=== PATIENT | male | born 1980 | race Caucasian/White ===

== ENCOUNTER 2024-11-09 10:30 | Day surgery (SDC) | payer OTHER ==
[2024-11-02 16:37] VITALS: BP 179/85
[~2024-11-09] VITALS: Ht 180.3 cm; Wt 70.5 kg
[~2024-11-09 10:30] MED LIST: ASPIRIN325 MG PO; IBLOOD GLUCOSE TEST STRIP 1 EA TEST VI PRN; LACTATED RINGER'S 1,000 ML IV SCH; LIDOCAINE HCL 1% 5 ML SDV INJ ONE; MIDAZOLAM HCL 5 MG/5 ML VIAL IV PRN; fentaNYL citrate 100 MCG/2 ML VIAL IV PRN
[2024-11-09 10:49] VITALS: BP 134/78
[2024-11-09 11:08] LABS: BASOPHILS 2.8 % (0.2-1.2); BASOPHILS, ABSOLUTE 0.27 K/uL (0.01-0.08); EOSINOPHILS 1.5 % (0.8-7.0); EOSINOPHILS, ABSOLUTE 0.15 K/uL (0.04-0.54); HEMATOCRIT 69.6 % (40.1-51.0); LYMPHOCYTES 12.7 % (21.8-53.1); LYMPHOCYTES, ABSOLUTE 1.23 K/uL (1.32-3.57); MCH 27.6 PG (25.7-32.2); MCHC 32.8 g/dL (32.3-36.5); MCV 84.2 fL (79.0-92.2); MONOCYTES, ABSOLUTE 0.39 K/uL (0.30-0.82); NEUTROPHILS 78.8 % (34.0-67.9); NEUTROPHILS, ABSOLUTE 7.62 K/uL (1.78-5.38); PLATELET COUNT 717 K/uL (163-337); RBC > 8.06 M/uL (4.63-6.08)
[2024-11-09 11:18] LABS: HEMOGLOBIN 22.8 g/dL (13.7-17.5)
[2024-11-09 11:26] LABS: ALBUMIN 4.2 g/dL (3.4-5.0); ALBUMIN/GLOBULIN RATIO 1.2 (1.1-2.4); ANION GAP 10.9 (7-21); BILIRUBIN, TOTAL 1.1 mg/dL (0.2-1.0); BUN/CREATININE RATIO 20.4 (6.0-28.6); CALCIUM 9.4 mg/dL (8.5-10.1); CREATININE, SERUM 1.47 mg/dL (0.70-1.30); POTASSIUM 3.9 mmol/L (3.5-5.1); PROTEIN, TOTAL 7.7 g/dL (6.4-8.2)
[2024-11-09] MEDS ORDERED: propofoL 200 MG/20 ML VIAL ONE ×2 (11:39→11:58)
[2024-11-09] MEDS ORDERED: LIDOCAINE HCL 2% 5 ML SDV ONE (11:57)
--- NOTE | 2024-11-09 12:19 | NUR ---
11/09/24 1219 Lynne Merino 1212-PATIENT ARRIVED TO PACU ON 2L NC RR EVEN. PATIENT NONAROUSABLE LAYING PRONE. SR HR 60'S. IVF INFUSING. BANDAIDS TO BILATERAL LOWER BACK CDI.
[2024-11-09 12:49] VITALS: BP 128/88
[2024-11-11 03:59] LABS: BETA-2-MICROGLOBULIN,SER/PLAS 2.7 mg/L (0.8-2.4)
--- NOTE | 2024-11-20 13:23 | PATH ---
[facility] [address] [place], [place] [address] Signed SPECIMEN(S): A BONE MARROW - CORE SPECIMEN(S): B BONE MARROW - ASPIRATION SPECIMEN(S): C FLOW CYTOMETRY, BM EDTA CLINICAL HISTORY: Polycythemia vera. 43 years old male with MPN. Please do not recollect to send FISH for BCR/ABL. Please do not to send [id number] and relax JAKZ exon 12, MPL,CALR DIAGNOSIS SUMMARY: Peripheral blood - Polycythemia, RBC count 8.06 M/ul. - Thrombocytosis, platelet count 717 K/ul. - No circulating blasts are identified. Bone marrow biopsy and aspiration: - Hypercellular marrow, 90%, with 1.5% myeloblasts. - Trilineage hematopoiesis with erythrocytosis. - MF-1 reticulin fibrosis. - Findings are supportive of myeloproliferative neoplasm, favor polycythemia vera. Confirmatory molecular testing is pending. - See Diagnostic Comment. DIAGNOSTIC COMMENT: The findings are supportive of a myeloproliferative neoplasm, favor polycythemia vera. A FISH probe for BCR/ABL1 is negative. Confirmatory pending studies at the time of this report include chromosome analysis, and molecular mutation testing for JAK2 V617 with reflex to JAK2 exon 12-13, CALR, and MPL. The results will be reported via addendum. HISTORICAL SUMMARY: 43 yo male with no prior hematology case history in the [employer] database. He presents for evaluation of an unexplained erythrocytosis and thrombocytosis. PERIPHERAL BLOOD: HEMOGRAM (11/09/2024): WBC 9.68 K/ul, RBC 8.06 M/ul, HGB 22.8 g/dl, HCT 69.6%, MCV 84.2 fl, MCH 27.6 pg, MCHC 32.8 g/dl, RDW 19.7%, PLT 717 K/ul. AUTOMATED DIFFERENTIAL COUNT: Neutrophils 78.8%, lymphocytes 12.7%, monocytes 4.0%, eosinophils 1.5%, basophils 2.8%. The red blood cells are markedly increased in numbers. The RBC's are normocytic and normochromic with moderate aniso-poikilocytosis. The neutrophils are unremarkable. Lymphocytes are composed of PATIENT NAME: VENUS CALABRESE [facility] DATE OF : 76 REPORT #: [id number] PHYSICIAN: [facility] PCP: NO PRIMARY CARE PHYSICIAN REPORT IS CONFIDENTIAL AND NOT TO BE RELEASED WITHOUT AUTHORIZATION [facility] [address] [place], [place] [address] Signed small mature appearing forms. Platelets are increased in number. Platelet clumping is identified. No blasts are identified. BONE MARROW: ASPIRATE SMEARS/TOUCH IMPRINT: The aspirate smears are adequate for evaluation. Erythroid precursors are increased in numbers with essentially normal morphology. The myeloid precursors show full maturation with unremarkable morphology. There is no increase in blasts. Megakaryocytes are identified with a variable sized atypical morphology. BONE MARROW DIFFERENTIAL COUNT (300 cells): Blasts 1%. promyelocytes less than 1%, myelocytes 6%, metamyelocytes/bands/segs 37%, erythroid precursors 41%, lymphocytes 5%, monocytes 5%, eosinophils 5%, plasma cells less than 1%. M:E ratio: 1.2:1 BONE MARROW CORE BIOPSY/ASPIRATE CLOT/CELL BLOCK: The aspirate clot section has several marrow spicules. The clot section and the core biopsy are adequate for evaluation. The core biopsy demonstrates unremarkable trabecular bone. The cellularity is increased for age, estimated at 90%. The erythroid precursors are increased in numbers with essentially unremarkable maturation. The myeloid precursors are unremarkable with no significant dyspoiesis. Blasts are not increased. Megakaryocytes appear increased in number with variable sized morphology. No granulomas, atypical lymphoid aggregates or foreign malignant cells are detected. SPECIAL STAINS (with adequate controls): - iron (aspirate smear): Decreased marrow iron stores by Prussian Blue staining. No ring sideroblasts are identified. - iron (cell block): Decreased marrow iron stores. - reticulin (block A1): MF-1 reticulin fibrosis. IMMUNOHISTOCHEMISTRY STAINS (performed on block A1 with adequate controls). - CD71: 50% FLOW CYTOMETRY: Bone marrow, flow cytometry: - No diagnostic abnormal populations are identified by flow cytometry. - 1.5% myeloblasts with no aberrant marking. - See comment. COMMENT: While no diagnostic hematopoietic abnormality is detected in this study, correlation with clinical, morphologic, and genetic findings is recommended for full interpretation and to assess for disease processes not fully examined by flow cytometry analysis, including PATIENT NAME: VENUS CALABRESE [facility] DATE OF : 76 REPORT #: [id number] PHYSICIAN: [facility] PATHOLOG[facility] PCP: NO PRIMARY CARE PHYSICIAN REPORT IS CONFIDENTIAL AND NOT TO BE RELEASED WITHOUT AUTHORIZATION [address] [address] Signed myelodysplastic syndrome or myeloproliferative neoplasm. FLOW CYTOMETRY ANALYSIS: FLOW DIFFERENTIAL (% Total CD45 vs. SSC gating): Myeloid 70%; Lymphoid 10%; Monocyte 2%; Dim CD45/Blast: 1.5%. Cell Count: 3.2 x 10*3/uL. POPULATION ANALYSIS: BLASTS: Analysis of the dim CD45 gate demonstrates 1.5% myeloblasts by CD34/CD117 and 0.2% hematogones. LYMPHOID CELLS: The lymphocyte gate comprises 10% of total events and includes 77% T-cells with a CD4:CD8 ratio of 1.1:1 and normal leary T-cell antigen expression. 10% of lymphocytes are polyclonal B-cells with a kappa:lambda ratio of 2.0:1. The remainders are NK-cells. MYELOID CELLS: The myeloid population comprises 70% of the total events. No aberrant immunophenotypic expression is detected. MONOCYTES: The monocyte population comprises 2% of the total events. Monocytes are not increased. Some decreased expression of CD13 is observed. PLASMA CELLS: 0.4% plasma cells are detected in the screening gate neg-dimCD45/CD38. Plasma cells are CD45 dim and positive for CD19. ANTIBODIES USED: KAPPA, LAMBDA, CD20, CD10, CD19, CD23, CD38, CD16, CD56, CD8, CD5, CD2, CD4, CD7, CD3, CD14, CD33, CD13, HLADR, CD34, CD117, CD15, CD45: TOTAL ANTIBODIES USED: 23. SHR FINAL DIAGNOSIS OF FLOW CYTOMETRY PERFORMED BY: Harvey Gaona MD, Nov 10 2024 12:29PM CYTOGENETICS: Chromosome analysis is pending. FISH ANALYSIS: A FISH probe for BCR/ABL1: Bone marrow, CML FISH (fluorescence in situ hybridization) RESULT: Not Detected INTERPRETATION: BCR/ABL1 t(9;22) rearrangement: Not detected Fluorescence in situ hybridization (FISH) analysis was performed using a tricolor, dual fusion BCR/ABL1 probe set used to detect the (9;22) translocation associated with CML and less commonly ALL or AML. The tri color probe set also detects derivative chromosome 9 deletions. All probe signals were within the normal reference range. This finding represents a NORMAL result. This analysis is limited to abnormalities detectable by the specific probes included in the study. FISH PATIENT NAME: VENUS CALABRESE [facility]ENN PATHOLOG[facility] DATE OF : [birth year] REPORT #: [id number] PHYSICIAN: [facility] PATHOLOGY PCP: NO PRIMARY CARE PHYSICIAN REPORT IS CONFIDENTIAL AND NOT TO BE RELEASED WITHOUT AUTHORIZATION [facility] [address] [place], [place] [address] Signed should be interpreted within the context of a full cytogenetic analysis and hematologic evaluation. ISCN: Probe Set Detail: BCR/ABL1/ASS1 t(9;22): nuc lucia 9q34(ASS1, ABL1)x2,22q11.2(BCRx2)[200] References: [place] of Genetics and Cytogenetics in Oncology and Hematology [email or web address] FISH Analysis Summary: Nuclei Scored: 200 Scoring Method: Manual; CPT Code 93396 Number of Probe units: 1 Multiplex Cells analyzed: Interphase Probe sets: Chrom 9: ABL1, Chrom 9: ASS1, Chrom 22: BCR MOLECULAR / PCR: MPN JAK2 V617F testing with sequential reflex to JAK2 Exon 12-13, CALR, and MPL is pending. GROSS DESCRIPTION: Two specimens are received in two containers. A. The specimen, labeled and designated "Calabrese, bone marrow core," is received in formalin and consists of one moon cylindrical core of bone that is 1.3 cm long and 0.2 cm in diameter. After decalcification in Immunocal the specimen is entirely submitted in (A1). B. The specimen, labeled and designated "Carloz, bone marrow clot," is received in formalin and consists of a 1.5 x 0.8 x 0.4 cm aggregate of red brown clot material. Entirely submitted in (B1). JS (under the direct supervision of a pathologist) The Gross Description was prepared using a voice recognition system. The report was reviewed for accuracy; however, sound-alike word errors, addition and/or deletions may occur. If there is any question about this report, please contact Client Services. ADDITIONAL NOTES: Immunohistochemical and/or in situ hybridization studies if performed in this case included appropriate positive controls that reacted as expected. This test was developed and its performance characteristics determined by [facility] ([place]). It has not been cleared or approved by the U.S. Food and Drug Administration. The FDA has determined that such clearance or approval is not PATIENT NAME: VENUS CALABRESE [facility]ENN PATHOLOGY DATE OF : 76 REPORT #: [id number] PHYSICIAN: COELEN RUELAS PCP: NO PRIMARY CARE PHYSICIAN REPORT IS CONFIDENTIAL AND NOT TO BE RELEASED WITHOUT AUTHORIZATION [address] [address] Signed necessary. This test is used for clinical purposes. It should not be regarded as investigational or for research. [facility] is certified under the Clinical Laboratory Improvement Amendments of 1988 (CLIA) as qualified to perform high complexity clinical laboratory testing. In this case, certain antibodies were performed by both immunohistochemistry and flow cytometry analysis because flow cytometry analysis did not fully explain all the light microscopic findings. Immunohistochemistry aided in the analysis. Both methods are deemed medically necessary in this case. This test was developed and its performance characteristics determined by [facility]� It has not been cleared or approved by the US Food and Drug Administration. The [employer] probe vendor for this study was [employer] This test was developed and its performance characteristics determined by [facility] ([place]). It has not been cleared or approved by the US Food and Drug Administration. The FDA does not require this test to go through premarket FDA review. This test is used for clinical purposes. It should not be regarded as investigational or for research. This laboratory is certified under the Clinical Laboratory Improvement Amendments (CLIA) as qualified to perform high complexity clinical laboratory testing. PERFORMING LABORATORY: The technical preparation was performed by [facility], [address] [place], [place] [address] [address] (CLIA#:� [id number]). Professional interpretation [facility] performed by [facility] - [address] [address] (CLIA#: [id number]). The technical component of the FISH testing was performed by [facility] ([place]), [address] [place] [address] (CLIA#:� [id number]). Professional interpretation was performed by [facility], [address] [facility] [place] [address] (CLIA#: [id number]). FINAL DIAGNOSIS OF FISH ANALYSIS PERFORMED BY: Candy Hoff MD, Pathologist Nov 16 2024 12:26PM Technical component was performed by [facility] ([place]), [address] [place] [id number] (CLIA# [id number]). Professional interpretation was performed by [facility], [address] [place], [place] [id number] (CLIA#: PATIENT NAME: VENUS CALABRESE PATHOLOGY DATE OF : 76 REPORT #: [id number] PHYSICIAN: [facility] PCP: NO PRIMARY CARE PHYSICIAN REPORT IS CONFIDENTIAL AND NOT TO BE RELEASED WITHOUT AUTHORIZATION [facility] [address] [place] [address] Signed [id number]). IMAGES: A: [id number]: [id number] Diagnostician: Harvey Gaona MD Pathologist Electronically Signed 11/20/2024 Copies: ~ PATIENT NAME: VENUS CALABRESE PATHOLOGY DATE OF : 76 REPORT #: [id number] PHYSICIAN: [facility]OLOG[facility] PCP: NO PRIMARY CARE PHYSICIAN REPORT IS CONFIDENTIAL AND NOT TO BE RELEASED WITHOUT AUTHORIZATION
== END 2024-11-09 12:55 | disposition home or self-care (01) ==
LOC: DS 10:30 → OPS 10:30 → DS 12:00 → OPS 12:00
PROVIDERS: ATTEND Specialist
PROC: 079T3ZX Drainage of Bone Marrow, Percutaneous Approach, Diagnostic (ICD-10-PCS; 2024-11-09)
PROC: 07DR3ZX Extraction of Iliac Bone Marrow, Percutaneous Approach, Diagnostic (ICD-10-PCS; principal; 2024-11-09 12:00)
DX: D45 Polycythemia vera (principal); G43.909 Migraine, unspecified, not intractable, without status migrainosus; Z79.82 Long term (current) use of aspirin
CPT/HCPCS: 01112; 36415; 80053; 82232; 83615; 85025; 85060; J2003; J2704; J7121